=== PATIENT | female | born 1965 | race Caucasian/White ===

== ENCOUNTER 2016-09-22 16:36 | Emergency (ER) | payer SELFPAY ==
[~2016-09-22] VITALS: Ht 167.6 cm; Wt 145.1 kg
[2016-09-22 17:17] VITALS: BP_SYST 137
== END 2016-09-22 21:58 | disposition home or self-care (01) ==
LOC: SED 16:36
DX: Z76.0 Encounter for issue of repeat prescription (principal); G43.909 Migraine, unspecified, not intractable, without status migrainosus; Z90.49 Acquired absence of other specified parts of digestive tract; Z90.89 Acquired absence of other organs
CPT/HCPCS: 99283

== ENCOUNTER 2016-12-27 15:29 | Emergency (ER) | payer SELFPAY ==
[~2016-12-27] VITALS: Ht 170.2 cm; Wt 145.1 kg
[2016-12-27 15:34] VITALS: BP_SYST 164
[2016-12-27] MEDS: KETOROLAC TROMETHAMINE 60 MG/2 ML VIAL IM ONE (16:41)
[2016-12-27 17:09] VITALS: BP_SYST 155
== END 2016-12-27 16:54 | disposition home or self-care (01) ==
LOC: SED 15:29
DX: G43.909 Migraine, unspecified, not intractable, without status migrainosus (principal); Z90.89 Acquired absence of other organs; Z90.49 Acquired absence of other specified parts of digestive tract
CPT/HCPCS: 99283; J1885

== ENCOUNTER 2017-03-25 20:58 | Emergency (ER) | payer SELFPAY ==
[~2017-03-25] VITALS: Ht 170.2 cm; Wt 145.1 kg
[2017-03-25 21:05] VITALS: BP_SYST 148
--- NOTE | 2017-03-25 21:10 | NUR ---
Patient to ER bed 3 to gown for evaluation. Side rails up.
--- NOTE | 2017-03-25 21:10 | NUR ---
Patient AAOx4, ambulatory, presents to ER with complaint of cough and headache x1 day. No other symptoms or complaints at this time.
--- NOTE | 2017-03-25 21:18 | NUR ---
ER MD Rodriguez at bedside for medical evaluation.
[2017-03-25 21:53] VITALS: BP_SYST 134
--- NOTE | 2017-03-25 21:53 | NUR ---
Patient given written and verbal discharge instructions and verbalizes understanding. ER MD discussed with patient the results and treatment provided. Patient in stable condition. ID arm band removed. Rx of Prednisone, Zithromax, and Butorphanol given. Patient educated on pain management and to follow up with PMD. Pain Scale 0/10. Opportunity for questions provided and answered.
== END 2017-03-25 21:53 | disposition home or self-care (01) ==
LOC: SED 20:58
DX: J40 Bronchitis, not specified as acute or chronic (principal); G43.909 Migraine, unspecified, not intractable, without status migrainosus; F17.210 Nicotine dependence, cigarettes, uncomplicated; Z71.6 Tobacco abuse counseling
CPT/HCPCS: 99283

== ENCOUNTER 2017-11-04 10:29 | Emergency (ER) | payer SELFPAY ==
[~2017-11-04] VITALS: Ht 170.2 cm; Wt 145.1 kg
[2017-11-04 10:51] VITALS: BP_SYST 154
== END 2017-11-04 11:44 | disposition home or self-care (01) ==
LOC: SED 10:29
DX: R51 Headache (principal)
CPT/HCPCS: 99281

== ENCOUNTER 2017-11-21 14:12 | Emergency (ER) | payer SELFPAY ==
[~2017-11-21] VITALS: Ht 170.2 cm; Wt 145.1 kg
[2017-11-21 14:28] VITALS: BP_SYST 159
== END 2017-11-21 15:28 | disposition home or self-care (01) ==
LOC: SED 14:12
DX: R51 Headache (principal); R03.0 Elevated blood-pressure reading, without diagnosis of hypertension; E66.01 Morbid (severe) obesity due to excess calories; Z68.43 Body mass index [BMI] 50.0-59.9, adult; Z76.5 Malingerer [conscious simulation]; Z90.49 Acquired absence of other specified parts of digestive tract; Z90.89 Acquired absence of other organs
CPT/HCPCS: 99281

== ENCOUNTER 2018-01-23 13:12 | Emergency (ER) | payer SELFPAY ==
[~2018-01-23] VITALS: Ht 170.2 cm; Wt 145.1 kg
[2018-01-23 13:21] VITALS: BP_SYST 166
[2018-01-23 14:02] VITALS: BP_SYST 148
== END 2018-01-23 13:59 | disposition home or self-care (01) ==
LOC: SED 13:12
DX: G43.909 Migraine, unspecified, not intractable, without status migrainosus (principal); G89.29 Other chronic pain; R03.0 Elevated blood-pressure reading, without diagnosis of hypertension; M19.90 Unspecified osteoarthritis, unspecified site
CPT/HCPCS: 99283

== ENCOUNTER 2018-06-07 20:35 | Emergency (ER) | payer SELFPAY ==
[~2018-06-07] VITALS: Ht 170.2 cm; Wt 145.1 kg
[2018-06-07 21:15] VITALS: BP_SYST 150
--- NOTE | 2018-06-07 21:15 | NUR ---
Patient triaged and placed in waiting room. VSS and patient appears in no acute distress at this time. Accompanied by self, awaiting available bed, and MD notified of need for MSE.
--- NOTE | 2018-06-07 21:30 | NUR ---
Pt came to the ED for a gradual onset MCCORMACK today. Reports the MCCORMACK started this morning. Associated photophobia and nausea. Reports having similar HAs and appetite is normal. Denies chest pain, SOB and diaphoresis. No other complaints/injuries noted. Will cont. to monitor.
--- NOTE | 2018-06-07 21:35 | NUR ---
ER at bedside examining patient.
--- NOTE | 2018-06-07 22:00 | NUR ---
PT AMBULATORY TO [facility] CHAIR FOR EVALUATION
[2018-06-07 22:16] VITALS: BP_SYST 150
--- NOTE | 2018-06-07 22:16 | NUR ---
Patient given written and verbal discharge instructions and verbalizes understanding. ER MD Dr. Joyce discussed with patient the results and treatment provided. Patient in stable condition. ID arm band removed. Rx of Butorphanol and Narcan given. Patient educated on pain management and to follow up with PMD. Pain Scale 0/10. Opportunity for questions provided and answered. Medication side effect fact sheet provided.
== END 2018-06-07 22:16 | disposition home or self-care (01) ==
LOC: SED 20:35
DX: G43.909 Migraine, unspecified, not intractable, without status migrainosus (principal); M19.90 Unspecified osteoarthritis, unspecified site
CPT/HCPCS: 99283

== ENCOUNTER 2018-08-27 16:10 | Emergency (ER) | payer SELFPAY ==
[~2018-08-27] VITALS: Ht 170.2 cm; Wt 149.7 kg
[2018-08-27 16:23] VITALS: BP_SYST 139
--- NOTE | 2018-08-27 16:31 | NUR ---
Ambulatory to bed 8
--- NOTE | 2018-08-27 16:45 | NUR ---
Patient AAOx4 brought in by self to ER c/o migraine. Patient has past medical history of chronic migraines. Patient states "I ran out of my prescription for migraines." Patient reports taking Butorphanol Tartrate nasal spray for migraines. No signs or symptoms of acute distress noted.
--- NOTE | 2018-08-27 16:51 | NUR ---
ER Dr. Clarke at bedside examining patient.
--- NOTE | 2018-08-27 17:23 | NUR ---
Patient given written and verbal discharge instructions and verbalizes understanding. ER MD Dr. Clarke discussed with patient the results and treatment provided. Patient in stable condition. ID arm band removed. Rx of Butorphanol Tartrate Nasal [place] given. Patient educated on pain management and to follow up with PMD. Pain Scale 0/10. Opportunity for questions provided and answered. Medication side effect fact sheet provided.
[2018-08-27 17:24] VITALS: BP_SYST 130
== END 2018-08-27 17:23 | disposition home or self-care (01) ==
LOC: SED 16:10
DX: Z76.0 Encounter for issue of repeat prescription (principal); G43.909 Migraine, unspecified, not intractable, without status migrainosus
CPT/HCPCS: 99283

== ENCOUNTER 2018-10-01 15:38 | Emergency (ER) | payer SELFPAY ==
[~2018-10-01] VITALS: Ht 170.2 cm; Wt 149.7 kg
[2018-10-01 15:57] VITALS: BP_SYST 164
--- NOTE | 2018-10-01 16:07 | NUR ---
Patient to ER bed 02 for evaluation. Side rails up.
--- NOTE | 2018-10-01 16:10 | NUR ---
ER Nancy Barboza at bedside examining patient.
--- NOTE | 2018-10-01 16:15 | NUR ---
Pt requesting med refill for migraine MCCORMACK.Pt has no PMD at this time.
[2018-10-01 16:30] VITALS: BP_SYST 164
--- NOTE | 2018-10-01 16:30 | NUR ---
Patient given written and verbal discharge instructions and verbalizes understanding. ER MD discussed with patient the results and treatment provided. Patient in stable condition. ID arm band removed. Rx of butorphanol given. Patient educated on pain management and to follow up with PMD. Pain Scale 5. Opportunity for questions provided and answered. Medication side effect fact sheet provided.
--- NOTE | 2018-10-01 16:31 | NUR ---
Pt to fill RX for pain control at home. Pt has no acute distress noted at time of discharge.
== END 2018-10-01 16:30 | disposition home or self-care (01) ==
LOC: SED 15:38
DX: G43.909 Migraine, unspecified, not intractable, without status migrainosus (principal)
CPT/HCPCS: 99283

== ENCOUNTER 2018-11-13 23:12 | Emergency (ER) | payer SELFPAY ==
[~2018-11-13] VITALS: Ht 170.2 cm; Wt 145.1 kg
[2018-11-13 23:29] VITALS: BP_SYST 161
== END 2018-11-14 01:19 | disposition left against medical advice (07) ==
LOC: SED 23:12
DX: R51 Headache (principal); Z53.21 Procedure and treatment not carried out due to patient leaving prior to being seen by health care provider

== ENCOUNTER 2018-11-18 16:30 | Emergency (ER) | payer SELFPAY ==
[~2018-11-18] VITALS: Ht 170.2 cm; Wt 136.1 kg
[2018-11-18 16:30] VITALS: BP_SYST 156
--- NOTE | 2018-11-18 16:30 | NUR ---
Patient triaged and placed in waiting room. VSS and patient appears in no acute distress at this time. Accompanied by SELF, awaiting available bed, and MD notified of need for MSE.
--- NOTE | 2018-11-18 17:01 | NUR ---
BROUGHT BACK TO BED #3 AND TRIAGED. REPORT GIVEN TO MORRIS
--- NOTE | 2018-11-18 17:19 | NUR ---
ER Dr. BURRELL at bedside examining patient.
[2018-11-18] MEDS ORDERED: LIDOCAINE/PRILOCAINE 5 GM CREAM (EMLA) TP ONE (17:30)
--- NOTE | 2018-11-18 17:31 | NUR ---
PATIENT CAME IN BECASUE SHE STEPPED ON THRON WITH HER RIGHT FOOT. NO BLEEDING FROM SITE. PATIENT DENIES PAIN. PATIENT DENIES SOB, NAUSEA, AND VOMITING. PATIENT ALERT AND ORIENTED X4.
--- NOTE | 2018-11-18 17:55 | NUR ---
DR BURRELL AT BEDSIDE REMOVING FOREIGN BODY FROM PATIENT'S FOOT.
[2018-11-18] MEDS ORDERED: BACITRACIN 1 GM OINT TP ONE (18:15)
--- NOTE | 2018-11-18 18:16 | NUR ---
Patient given written and verbal discharge instructions and verbalizes understanding. ER MD discussed with patient the results and treatment provided. Patient in stable condition. ID arm band removed. Rx of BUTORPHANOL given. Patient educated on pain management and to follow up with PMD. Pain Scale 3/10. Opportunity for questions provided and answered. Medication side effect fact sheet provided.
[2018-11-18 18:18] VITALS: BP_SYST 156
== END 2018-11-18 18:18 | disposition home or self-care (01) ==
LOC: SED 16:30
DX: S91.341A Puncture wound with foreign body, right foot, initial encounter (principal); W45.8XXA Other foreign body or object entering through skin, initial encounter; Y93.89 Activity, other specified; Y92.89 Other specified places as the place of occurrence of the external cause; Y99.8 Other external cause status
CPT/HCPCS: 99284

== ENCOUNTER 2018-12-27 12:32 | Emergency (ER) | payer SELFPAY ==
[~2018-12-27] VITALS: Ht 170.2 cm; Wt 140.6 kg
[2018-12-27 12:54] VITALS: BP_SYST 149
[2018-12-27 14:10] VITALS: BP_SYST 149
== END 2018-12-27 14:10 | disposition home or self-care (01) ==
LOC: SED 12:32
DX: J06.9 Acute upper respiratory infection, unspecified (principal); R05 Cough; J45.909 Unspecified asthma, uncomplicated; M19.90 Unspecified osteoarthritis, unspecified site; F17.200 Nicotine dependence, unspecified, uncomplicated
CPT/HCPCS: 99283

== ENCOUNTER 2019-01-08 13:16 | Emergency (ER) | payer SELFPAY ==
[~2019-01-08] VITALS: Ht 170.2 cm; Wt 136.1 kg
[2019-01-08 13:54] VITALS: BP_SYST 136
--- NOTE | 2019-01-08 13:57 | NUR ---
Patient triaged and placed in waiting room. VSS and patient appears in no acute distress at this time. Accompanied by self, awaiting available bed, and MD notified of need for MSE.
--- NOTE | 2019-01-08 14:42 | NUR ---
Ambulatory to chair 1
--- NOTE | 2019-01-08 15:14 | NUR ---
ER Dr. Joyce at bedside examining patient.
[2019-01-08 15:31] VITALS: BP_SYST 136
--- NOTE | 2019-01-08 15:31 | NUR ---
Patient given written and verbal discharge instructions and verbalizes understanding. ER MD discussed with patient the results and treatment provided. Patient in stable condition. ID arm band removed. Rx of Butorphanol and Dexamethasone given. Patient educated on pain management and to follow up with PMD in 2-3 days. Pain Scale 0/10 Opportunity for questions provided and answered. Medication side effect fact sheet provided.
== END 2019-01-08 15:31 | disposition home or self-care (01) ==
LOC: SED 13:16
DX: G43.809 Other migraine, not intractable, without status migrainosus (principal); M25.511 Pain in right shoulder
CPT/HCPCS: 99283

== ENCOUNTER 2019-07-18 10:16 | Emergency (ER) | payer SELFPAY ==
[~2019-07-18] VITALS: Ht 170.2 cm; Wt 140.6 kg
[2019-07-18 10:16] VITALS: BP_SYST 148
[2019-07-18 10:47] VITALS: BP_SYST 148
== END 2019-07-18 10:47 | disposition home or self-care (01) ==
LOC: SED 10:16
DX: G43.909 Migraine, unspecified, not intractable, without status migrainosus (principal); Z76.0 Encounter for issue of repeat prescription
CPT/HCPCS: 99281

== ENCOUNTER 2019-10-02 11:18 | Emergency (ER) | payer SELFPAY ==
[~2019-10-02] VITALS: Ht 172.7 cm; Wt 145.1 kg
[2019-10-02 11:47] VITALS: BP_SYST 154
[2019-10-02 12:25] VITALS: BP_SYST 148
== END 2019-10-02 12:25 | disposition home or self-care (01) ==
LOC: SED 11:18
DX: H60.92 Unspecified otitis externa, left ear (principal)
CPT/HCPCS: 99283

== ENCOUNTER 2019-10-30 12:04 | Emergency (ER) | payer SELFPAY ==
[~2019-10-30] VITALS: Ht 170.2 cm; Wt 131.5 kg
[2019-10-30 12:17] VITALS: BP_SYST 142
[2019-10-30 12:36] VITALS: BP_SYST 142
== END 2019-10-30 12:36 | disposition left against medical advice (07) ==
LOC: SED 12:04
DX: G43.909 Migraine, unspecified, not intractable, without status migrainosus (principal); F11.20 Opioid dependence, uncomplicated
CPT/HCPCS: 99281

== ENCOUNTER 2019-12-05 15:13 | Emergency (ER) | payer SELFPAY ==
[~2019-12-05] VITALS: Ht 167.6 cm; Wt 140.6 kg
[2019-12-05 15:22] VITALS: BP_SYST 162
[2019-12-05 15:46] VITALS: BP_SYST 162
== END 2019-12-05 15:46 | disposition home or self-care (01) ==
LOC: SED 15:13
DX: H92.02 Otalgia, left ear (principal); R05 Cough; G43.909 Migraine, unspecified, not intractable, without status migrainosus
CPT/HCPCS: 99283

== ENCOUNTER 2020-01-05 07:17 | Emergency (ER) | payer OTHER ==
[~2020-01-05] VITALS: Ht 167.6 cm; Wt 140.6 kg
[2020-01-05 07:24] VITALS: BP_SYST 142
== END 2020-01-05 07:39 | disposition left against medical advice (07) ==
LOC: SED 07:17
DX: R51.9 Headache, unspecified (principal); Z53.21 Procedure and treatment not carried out due to patient leaving prior to being seen by health care provider